=== PATIENT | male | born 1980 | race Caucasian/White ===

== ENCOUNTER 2017-07-24 05:44 | Day surgery (SDC) | payer BC ==
[2017-07-23 13:01] VITALS: BMI 20.7
[~2017-07-24] VITALS: Ht 167.6 cm; Wt 59.2 kg
[2017-07-24] VITALS (11 sets, daily range): BP systolic 106–136; BP diastolic 65–78; PULSE 60–90; RESP 16–19; Ht 167.6 cm; Wt 59.2 kg
[2017-07-24] MEDS ORDERED: POLYMYXIN/BACITRACIN 1L IRRIG ONE (06:48)
--- NOTE | 2017-07-24 07:27 | HPN ---
Date/Time of Note Date/Time of Note DATE: 07/24/17 TIME: 07:27 Interval H&P Admission Note Pt. seen H&P reviewed: No system changes OLIVIA SALAS MD Jul 24, 2017 07:27
[2017-07-24] MEDS ORDERED: PROCHLORPERAZINE 10 MG INJ IV PRN (09:00)
[2017-07-24] MEDS ORDERED: FENTAnyl 50 MCG/ML VIAL IV PRN ×3 (09:00)
[2017-07-24] MEDS ORDERED: HYDROmorphONE (0.2 MG/ML) 10ML SYG IV PRN ×3 (09:00)
[2017-07-24] MEDS ORDERED: DIPHENHYDRAMINE 50 MG INJ IV PRN (09:00)
[2017-07-24] MEDS ORDERED: MEPERIDINE 25 MG INJ IV PRN (09:00)
[2017-07-24] MEDS ORDERED: OXYCODONE/ACETAMINOPHEN (5/325) TAB PO PRN ×3 (09:00→10:30)
[2017-07-24] MEDS ORDERED: ONDANSETRON 4 MG INJ IV PRN ×2 (09:00→10:30)
[2017-07-24] MEDS ORDERED: MIDAZOLAM 1 MG/ML 2 ML INJ ONE (09:12)
[2017-07-24] MEDS ORDERED: PROPOFOL 20 ML ONE ×2 (09:12→09:42)
[2017-07-24] MEDS ORDERED: LIDOCAINE 2% (SDV) 5 ML INJ ONE (09:12)
[2017-07-24] MEDS ORDERED: ROCURONIUM 50 MG INJ ONE (09:12)
[2017-07-24] MEDS ORDERED: SUCCINYLCHOLINE CHLORIDE 100 MG/5 ML SYG IV ONE (09:12)
[2017-07-24] MEDS ORDERED: FENTAnyl 50 MCG/ML VIAL ONE (09:13)
[2017-07-24] MEDS ORDERED: PHENYLephrine (100 MCG/ML) 5ML SYG ONE (09:24)
[2017-07-24] MEDS ORDERED: ONDANSETRON 4 MG INJ ONE (09:26)
[2017-07-24] MEDS ORDERED: DEXAMETHASONE 4 MG/ML 1 ML INJ ONE (09:26)
[2017-07-24] MEDS ORDERED: FAMOTIDINE 20 MG INJ ONE (09:27)
[2017-07-24] MEDS ORDERED: BUPIVACAINE 0.5%/EPI (SDV) 30 ML INJ ONE (09:34)
[2017-07-24] MEDS ORDERED: EPHEDrine SULFATE 50 MG/5 ML SYG ONE (09:42)
[2017-07-24] MEDS ORDERED: KETOROLAC 30 MG INJ ONE (09:54)
[2017-07-24] MEDS ORDERED: HYDROmorphONE 2 MG/ML SYG ONE (09:56)
[2017-07-24] MEDS ORDERED: GLYCOPYRROLATE 0.4 MG INJ ONE (09:57)
[2017-07-24] MEDS ORDERED: NEOSTIGMINE 3 MG/3 ML SYRINGE ONE (09:57)
--- NOTE | 2017-07-24 10:04 | OPR ---
Date/Time of Note Date/Time of Note DATE: 07/24/17 TIME: 09:59 Operative Report Procedure Date: Jul 24, 2017 Preoperative Diagnosis Left inguinal hernia without obstruction Postoperative Diagnosis Left inguinal hernia without obstruction (indirect) Operation/Procedure Performed 1. Repair left inguinal hernia with large plug 2. Left ilioinguinal nerve block Surgeon Olivia Salas MD Report Clerk None Anesthesia Type: general Anesthesiologist: MILA PENA MD Estimated Blood Loss: 0 - 10 ml's Transfusion none Specimen None Grafts/Implants none Tubes/Drains None Complications none Pt Condition Post Procedure: stable Disposition: PACU Indications Symptomatic Procedure Description After satisfactory general anesthesia was achieved, the lower abdomen was prepped and draped in the usual fashion. A 3 cm transverse suprapubic left groin incision was made and carried down to the level of the external oblique aponeurosis which was opened in the direction of its fibers opening the external ring. The cord and nerve were retracted and preserved. The floor of the canal was intact. There was an indirect sac which was dissected to its base at the internal ring and reduced. The reduction was maintained by placement of a large plug which was secured circumferentially to healthy fascia utilizing 3-0 Vicryl sutures interrupted. Next, the flat portion of the mesh was cut and fashioned to fit in the floor of the canal as an overlay. It was anchored at the pubic tubercle with 2-0 Novafil, laterally to inguinal ligament with interrupted 2-0 Novafil, and medially to conjoined tendon with interrupted 2-0 Novafil. The mesh distal to the cord was reconstituted with a single suture of 2-0 Novafil creating a new internal ring of appropriate size. The cord and nerve were then replaced beneath the external oblique which was closed with a running 3-0 Vicryl suture. Igor's fascia was closed with interrupted 3 -0 Vicryl. Next a left inguinal nerve block was performed. 10 cc of 0.5% Marcaine with epinephrine were injected into the fascia 1 cm medial and inferior to the left anterior iliac spine. 10 more cc of the local anesthetic were injected into the skin and subcu. The skin was closed with subcuticular absorbable linwood. Sponge and needle counts were reported as correct 2. OLIVIA SALAS MD Jul 24, 2017 10:04
[2017-07-24] MEDS ORDERED: morphine 2 MG INJ IV PRN (10:30)
== END 2017-07-24 11:40 | disposition home or self-care (01) ==
LOC: SDS 05:44
PROVIDERS: ATTEND Surgery
DX: K40.90 Unilateral inguinal hernia, without obstruction or gangrene, not specified as recurrent (principal); Z88.1 Allergy status to other antibiotic agents
CPT/HCPCS: 49505; C1781; J1100; J1170; J1885; J2250; J2370; J2405; J2710; J3010; Z7512; Z7610